=== PATIENT | female | born 1985 | race Caucasian/White ===

== ENCOUNTER 2021-06-16 01:18 | Emergency (ER) | payer OTHER, MEDICAID ==
[~2021-06-16] VITALS: Ht 170.2 cm; Wt 59.0 kg
[2021-06-16 01:20] VITALS: BP 165/87
--- NOTE | 2021-06-16 13:53 | EKG ---
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
== END 2021-06-16 01:33 | disposition left against medical advice (07) ==
LOC: EDBD 01:18 → M.ERS 01:18
DX: T40.1X1A Poisoning by heroin, accidental (unintentional), initial encounter (principal); R40.4 Transient alteration of awareness; Y92.89 Other specified places as the place of occurrence of the external cause